=== PATIENT | male | born 1990 | race Caucasian/White ===

== ENCOUNTER → 2021-07-06 | Outpatient (CLI) | payer OTHER ==
[~2021-07-06] MED LIST: EFFEXOR XR 75 M75 MG PO; LOVENOX SY30 MG/0.3 SQ; NORCO 5-325 TA1 EACH PO; PERCOCET 10-321 EACH PO; ROBINUL TAB 1 MG1 MG PO
== END ==
LOC: CT 05-21 11:00
DX: C62.92 Malignant neoplasm of left testis, unspecified whether descended or undescended (principal); R97.8 Other abnormal tumor markers; R93.2 Abnormal findings on diagnostic imaging of liver and biliary tract; Z85.47 Personal history of malignant neoplasm of testis; K76.9 Liver disease, unspecified
CPT/HCPCS: 71260; Q9967